=== PATIENT | female | born 1945 ===

== ENCOUNTER 2016-09-19 10:03 | Emergency (ER) | payer OTHER ==
[2016-09-19 10:10] VITALS: RESP 20
--- NOTE | 2016-09-19 11:07 | C.PDOC ---
History Of Present Illness 70 y/o female, history of alcohol abuse, presents to emergency department with complaints of urinary frequency, and "more forgetful at times". Patient states [place] from [facility] 2 weeks ago. Patient also reports rashes intermittently to bilateral arms since arrival, now resolved. Denies any other complaints at this time. Denies any fever, cough, nausea, vomiting, diarrhea, or other associated symptoms, hunter. family poor historian, as pt came from [facility] 2 weeks ago. as per son, pt gave up alcohol 3 - 4 months ago, and has had times of forgetfullness since that time Time Seen by Provider: 09/19/16 10:16 Chief Complaint (Nursing): Female Genitourinary History Per: Patient History/Exam Limitations: no limitations Onset/Duration Of Symptoms: Days Current Symptoms Are (Timing): Still Present Recent travel outside of the [place]: Yes Past Medical History Reviewed: Historical Data, Nursing Documentation, Vital Signs Vital Signs: Last Vital Signs Temp 97.7 F 09/19/16 15:09 Pulse 62 09/19/16 15:09 Resp 20 09/19/16 15:09 BP 115/71 09/19/16 15:09 Pulse Ox 96 09/19/16 15:42 Family History: States: Unknown Family Hx - Social History Hx Alcohol Use: Yes (stopped 3 months ago) Hx Substance Use: No - Immunization History Hx Tetanus Toxoid Vaccination: No Hx Influenza Vaccination: No Hx Pneumococcal Vaccination: No Review Of Systems Except As Marked, All Systems Reviewed And Found Negative. Constitutional: Negative for: Fever, Chills Respiratory: Negative for: Cough, Shortness of Breath Gastrointestinal: Positive for: Abdominal Pain (mild lower). Negative for: Nausea, Vomiting Genitourinary: Positive for: Frequency. Negative for: Dysuria, Hematuria Skin: Positive for: Rash (resolved) Neurological: Negative for: Headache, Dizziness Physical Exam - Physical Exam Appears: Non-toxic, No Acute Distress Skin: Normal Color, Warm, Dry, No Rash Head: Atraumatic, Normacephalic Eye(s): bilateral: Normal Inspection, PERRL, EOMI Oral Mucosa: Moist Chest: Symmetrical Cardiovascular: Rhythm Regular Respiratory: Normal Breath Sounds, No Rales, No Rhonchi, No Wheezing Gastrointestinal/Abdominal: Soft, Tenderness (mild lower abd), No Guarding, No Rebound Back: Normal Inspection Extremity: Normal ROM, Capillary Refill (< 2 sec. 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 imaging neg for acute patholoyg. no ttp. ?pos urine. will treat as pt reports frequency. spoke to son at [facility], about outpt f/u and return precautions. pt and son verbalize comfortable to d/c home. pt oriented x 3 in ed, in nad. answering questions apprropriately, neuro intact. suspect 2/2 chronic etoh abuse. Disposition - Disposition Referrals: [facility] at [facility] [Outside] [facility] [Outside] Florin Raymond MD [Staff Provider] - Elroy Zaman MD [Staff Provider] - Disposition: HOME/ ROUTINE Disposition Time: 15:39 Condition: STABLE Additional Instructions: please follow up with your doctor. return toe r with worsening symptoms or concerns. Prescriptions: Nitrofurantoin Macrocrystals [Macrobid] 100 mg PO BID #14 cap Instructions: Urinary Tract Infection in Women (DC), Acute Abdominal Pain (ED) , Altered Mental Status (ED) Forms: [employer] (Belarusian) Print Language: ANGOLAN - Clinical Impression Clinical Impression: Abdominal pain, UTI (urinary tract infection), Forgetfulness - Scribe Statement The provider has reviewed the documentation as recorded by the Scribbrittany Harvey All medical record entries made by the Scribe were at my direction and personally dictated by me. I have reviewed the chart and agree that the record accurately reflects my personal performance of the history, physical exam, medical decision making, and the department course for this patient. I have also personally directed, reviewed, and agree with the discharge instructions and disposition.
[2016-09-19 11:15] LABS: EOS # 0.2 K/uL (0.0-0.7); EOS % 3.4 % (0.0-4.0); HEMATOCRIT 36.9 % (34.0-47.0); LYMPH # 1.8 K/uL (1.0-4.3); LYMPH % 38.4 % (20.0-40.0); MEAN CELL VOLUME 100.6 fL (81.0-99.0); MEAN CORPUSCULAR HEMOGLOBIN 34.2 pg (27.0-31.0); MEAN CORPUSCULAR HGB CONC 33.9 g/dL (33.0-37.0); MEAN PLATELET VOLUME 7.5 fL (7.2-11.7); MONO # 0.5 K/uL (0.0-0.8); MONO % 11.4 % (0.0-10.0); NRBC % 0.1 % (0.0-2.0); WHITE BLOOD COUNT 4.6 K/uL (4.8-10.8)
[2016-09-19 11:18] LABS: CHLORIDE 103 mmol/L (98-107); SODIUM 142 mmol/L (132-148)
[2016-09-19 11:19] LABS: POTASSIUM 3.9 mmol/L (3.6-5.2)
[2016-09-19 11:21] LABS: ALB/GLOB RATIO 1.1 (1.0-2.1); ALKALINE PHOSPHATASE 98 U/L (38-126); ALT/SGPT 31 U/L (9-52); AST/SGOT 51 U/L (14-36); BILIRUBIN,TOTAL 0.6 mg/dL (0.2-1.3); BLOOD UREA NITROGEN 15 mg/dL (7-17); CALCIUM 8.7 mg/dl (8.6-10.4); CARBON DIOXIDE 28 mmol/L (22-30); GFR AFRICAN-AMERICAN > 60; GLUCOSE,RANDOM 80 mg/dL (65-105)
[2016-09-19 11:24] LABS: INR 1.1
[2016-09-19 12:38] LABS: RBC URINE 1 /hpf (0-3); URINE BACTERIA RARE (<OCC); URINE BILIRUBIN NEGATIVE (NEGATIVE); URINE BLOOD NEGATIVE (NEGATIVE); URINE COLOR Yellow (YELLOW); URINE GLUCOSE (UA) NORMAL (Normal); URINE KETONE NEGATIVE (NEGATIVE); URINE LEUKOCYTE ESTERASE TRACE Leu/uL (Negative); URINE PROTEIN NEGATIVE (NEGATIVE); WBC URINE 7 /hpf (0-5)
[2016-09-19] MEDS ORDERED: Iohexol 350mg/ml 100 ML ONE (14:28)
--- NOTE | 2016-09-19 14:57 | CT ---
PROCEDURE: CT HEAD WITHOUT CONTRAST. HISTORY: confusion COMPARISON: None available TECHNIQUE: Axial computed tomography images were obtained through the head/brain without intravenous contrast. Radiation dose: Total exam DLP = 772.25 mGy-cm. This CT exam was performed using one or more of the following dose reduction techniques: Automated exposure control, adjustment of the mA and/or kV according to patient size, and/or use of iterative reconstruction technique. FINDINGS: HEMORRHAGE: No intracranial hemorrhage. BRAIN: Diffuse atrophy with prominence of the ventricles and sulci noted. No mass effect or edema. Intracranial atherosclerosis. Right frontal encephalomalacia. Scattered periventricular and subcortical white matter hypodensities, which are nonspecific, but often seen with chronic microvascular ischemic disease. Please note that MRI with diffusion imaging is more sensitive in the detection of acute ischemic event. VENTRICLES: No hydrocephalus. CALVARIUM: Unremarkable. PARANASAL SINUSES: Unremarkable as visualized. No significant inflammatory changes. MASTOID AIR CELLS: Unremarkable as visualized. No inflammatory changes. OTHER FINDINGS: None. IMPRESSION: Generalized atrophy. Right frontal encephalomalacia. Nonspecific white matter changes. Please note that MRI with diffusion imaging is more sensitive in the detection of acute ischemic event.
[2016-09-19 15:11] VITALS: BP 115/71; PULSE 62; TEMP 97.7
--- NOTE | 2016-09-19 15:16 | CT ---
PROCEDURE: CT Abdomen and Pelvis with contrast HISTORY: Lower abdominal pain COMPARISON: None. TECHNIQUE: CT scan of the abdomen and pelvis was performed after intravenous administration of contrast. Contrast dose: 100 mL Omnipaque 350 Radiation dose: Total exam DLP = 419.47 mGy-cm. This CT exam was performed using one or more of the following dose reduction techniques: Automated exposure control, adjustment of the mA and/or kV according to patient size, and/or use of iterative reconstruction technique. FINDINGS: LOWER THORAX: There is subsegmental atelectasis in both lower lobes, worse on the right. LIVER: The liver is normal in size and there is homogeneous enhancement. A 5 mm low-attenuation lesion in the hepatic dome is too small to characterize by CT criteria. There are nonspecific calcifications in the hepatic dome. No focal mass. No intrahepatic biliary ductal dilatation. GALLBLADDER AND BILE DUCTS: There are no calcified gallstones. There is diffuse dilatation of the common bile duct which measures 13 mm in its distal portion. PANCREAS: There is mild diffuse atrophy of the pancreas. No gross lesion or ductal dilatation. SPLEEN: The spleen is normal in size and there is homogeneous enhancement without focal mass. ADRENALS: Both adrenal glands are normal in size without discrete nodule. KIDNEYS AND URETERS: Both kidneys are normal in size and there is homogeneous enhancement without focal mass or hydronephrosis. VASCULATURE: No aortic aneurysm. BOWEL: The stomach is distended and. The small bowel loops are normal in caliber. There is moderate amount of stool scattered throughout the colon. APPENDIX: Normal appendix. PERITONEUM: No free fluid. No free air. LYMPH NODES: No enlarged lymph nodes. BLADDER: Partially decompressed. REPRODUCTIVE: The uterus deviated to the right. BONES: No acute fracture. OTHER FINDINGS: None. IMPRESSION: 1. No acute abdominal or pelvic abnormality. 2. Constipation. 3. No CT evidence of choledocholithiasis or cholelithiasis. Mild diffuse dilatation of the common bile duct. No evidence of periampullary mass.
[2016-09-19 15:37] VITALS: O2SAT 96
== END 2016-09-19 16:09 | disposition home or self-care (01) ==
LOC: C.ER 10:03
DX: N39.0 Urinary tract infection, site not specified (principal); R10.30 Lower abdominal pain, unspecified; R41.3 Other amnesia
CPT/HCPCS: 70450; 74177; 80053; 81001; 83690; 85025; 85610; 85730; 87086; 99285; Q9967